=== PATIENT | male | born 1990 | race Caucasian/White ===

== ENCOUNTER 2016-08-31 16:24 | Emergency (ER) | payer OTHER ==
[2016-08-31] MEDS ORDERED: NORCO, ANEXSIA 5/325MG TABLET (HYDROcodone/ACETAMINOPHEN) As Ordered ONE (17:28)
[2016-08-31] MEDS ORDERED: IBUPROFEN 800 MG TAB As Ordered ONE (17:28)
--- NOTE | 2016-08-31 17:34 | REP ---
Right forearm: Two views. History: Injury. Findings: Views right forearm demonstrate a slightly impacted fracture of the proximal radial head with a positive anterior fat pad. This would be better seen on elbow radiographs. Impression: Proximal radial head fracture. No other fracture seen. Signed by Leandro Francis MD 08/31/2016 05:25 P
--- NOTE | 2016-08-31 18:17 | EDDOCDS ---
Nurse's Notes [facility] Name: Humberto Renee Age: 26 yrs Sex: Male : 1990 Arrival Date: 08/31/2016 Time: 16:24 Bed PR Private MD: Other - Complete Info On Cds Diagnosis: Nondisplaced fracture of head of right radius-Impacted, Closed, Acute, Initial Encounter Presentation: 08/31 16:35 Presenting complaint: Patient states: about one hour ago fell off a ladder about 6 [facility] feet, landed on right arm, now pain in elbow, wrist and hand. Adult Sepsis Screening: The patient does not have new or worsening altered mentation. Patient's respiratory rate is less than 22. Systolic blood pressure is greater than 100. Patient has a qSOFA score of 0- Negative Sepsis Screen. Suicide/Homicide risk assessment- the patient denies having any suicidal and/or homicidal ideations and does not present with any other emotional, behavioral or mental health complaints. 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 Transition of care: patient was not received from another setting of care. 16:35 Acuity: SARAH Level 4 [facility] 16:35 Method Of Arrival: Walkin/Carried/Asstd [facility] Triage Assessment: 16:38 General: Appears in no apparent distress, comfortable, Behavior is appropriate for age, [facility] cooperative. Pain: Location: right arm Pain currently is 6 out of 10 on a pain scale. At worst was 10 out of 10 on a pain scale. HIV screening NA for this visit Offered previously. Musculoskeletal: Range of motion limited in right elbow and right wrist. Injury Description: pt fell from height of 5feet. Historical: - Allergies: PENICILLINS; - Home Meds: 1. none - PMHx: none; - PSHx: none; - Social history: Smoking status: Patient states was never smoker of tobacco. No barriers to communication noted. - Family history: Not pertinent. - : The pt / caregiver states he / she is not on anticoagulants. Home medication list is obtained from the patient. - Exposure Risk Screening:: None identified. Screenin:38 Screening information is obtained from the patient. Fall risk: No risks identified. srm Assistance ADL's: requires no assistance with activities of daily living. Abuse/DV Screen: The patient / caregiver reports he/she is: not in a situation that causes fear, pain or injury. Nutritional screening: No deficits noted. Advance Directives: There is no active DNR order. home support is adequate. Assessment: 17:38 General: Appears in no apparent distress, Behavior is appropriate for age, cooperative. srm Musculoskeletal: Circulation, motion, and sensation intact Capillary refill < 3 seconds in right fingers. 18:13 General: Appears comfortable, well nourished, well groomed, Behavior is appropriate for [facility] age, pleasant. Pain: Location: right elbow Pain currently is 2 out of 10 on a pain scale. Neurological: Level of Consciousness is awake, alert, Oriented to person, place, time. Respiratory: Airway is patent Respiratory effort is even, unlabored. Derm: Skin is pink, warm & dry. Musculoskeletal: Circulation, motion, and sensation intact Capillary refill < 3 seconds in right fingers Swelling present in right elbow. Vital Signs: 16:26 BP 145 / 82; Pulse 84; Resp 18 S; Temp 98.5(O); Pulse Ox 96% on R/A; Weight 86.18 kg gr2 (R); Height 6 ft. 0 in. (182.88 cm) (R); Pain 7/10; 18:06 BP 126 / 80; Pulse 87; Resp 18; Temp 99.4; Pulse Ox 96% ; Pain 2/10; srm 16:26 Body Mass Index 25.77 (86.18 kg, 182.88 cm) gr2 Vitals: 16:26 Log In Time: August 31, 2016 at 16:26. gr2 ED Course: 16:25 Patient visited by Becca Bey. gr2 16:25 Other - Complete Info On Cds is Private Physician. gr2 16:25 Patient moved to Waiting gr2 16:28 Patient visited by Becca Bey. gr2 16:28 Patient moved to Pre RCE gr2 16:37 Triage Initiated [facility] 16:38 Affected limb iced. [facility] 17:07 Patient moved to Triage 2 dem1 17:08 Ronald Francois PA-C is PHCP. dk1 17:08 Ava Mackenzie MD is Attending Physician. dk1 17:08 Patient visited by Ronald Francois PA-C. dk1 17:14 Patient moved to Radiology dem1 17:25 Patient moved to Triage 2 es5 17:27 Patient moved to PR1 / 25 srm 17:38 The patient / caregiver is instructed regarding the plan of care and ED course. srm Accompanied by Friend, Patient has correct armband on for positive identification. 17:39 Patient visited by Cathleen Ybarra RN. srm 17:50 Patient name changed from Humberto\S\B\S\Brink\S\ to Humberto\S\Alirio\S\Brink. EDMS 17:53 [facility] Payment Agreement was scanned into [employer] and attached to record. 18:02 [facility] is Referral Physician. dk1 18:13 No apparent distress. kpj 18:13 No IV's were initiated during this patient's visit. No procedures done that require kpj assistance. Sling applied to right arm. Patient with positive distal sensation and brisk distal capillary refill after application. Administered Medications: 17:35 Drug: Ibuprofen 800 mg [ibuprofen 800 mg tablet (1 tabs)] Route: PO; srm 18:07 Follow up: Response: Pain is decreased srm 18:13 Follow up: Response: Pain is decreased kpj 17:35 Drug: HYDROcodone-acetaminophen 1 tabs [hydrocodone 5 mg-acetaminophen 325 mg tablet (1 srm tabs)] Route: PO; 18:07 Follow up: Response: Pain is decreased srm 18:13 Follow up: Response: Pain is decreased kpj Order Results: There are currently no results for this order. Outcome: 18:02 Discharge ordered by Provider. dk1 18:13 Discharge Assessment: Patient awake, alert and oriented x 3. No cognitive and/or kpj functional deficits noted. Patient verbalized understanding of disposition instructions. patient administered narcotics - yes. Pt provided with safe discharge. The following High Risk Discharge criteria are identified: None. Discharged to home ambulatory, with friend. Condition: stable. Discharge instructions given to patient, Instructed on discharge instructions, follow up and referral plans. medication usage, no driving heavy equipment, Rest, Ice, Compression and Elevation. no drinking with medication, Demonstrated understanding of instructions, medications, Pt was receptive of discharge instructions/ teaching. Prescriptions given X 2. No special radiology studies were completed. Property sent home with patient. 18:16 Patient left the ED. kpj Signatures: Dispatcher [facility] Fabienne Mckee RN RN kpj Michelson, Staci, RN RN srm Anita, Lashae, Reg Reg gb Priscila, Ronald, PA-C PA-C dk1 Marcelle Berrios1 Cathy Combs,RN RN konrad Eddi, Linda zheng5 Becca Bey2 HARI
--- NOTE | 2016-08-31 18:17 | EDDOCDS ---
Physician Documentation [facility] Name: Humberto Renee Age: 26 yrs Sex: Male : 1990 Arrival Date: 08/31/2016 Time: 16:24 Bed PR Private MD: Other - Complete Info On Cds Disposition: 08/31/16 18:02 Discharged to Home/Self Care. Impression: Nondisplaced fracture of head of right radius - Impacted, Closed, Acute, Initial Encounter. - Condition is Stable. - Discharge Instructions: Radial Head Fracture. - Prescriptions for Ibuprofen 800 mg Oral Tablet - take 1 tablet by ORAL route every 8 hours As needed take with food; 30 tablet. [place] 5- 325 mg Oral Tablet - take 1 tablet by ORAL route every 6 hours As needed MDD: 4 tabs; 12 tablet. - Medication Reconciliation, Local Pharmacy Hours form. - Follow up: [facility]; When: 1 - 2 days; Reason: Continuance of care. Follow up: Emergency Department; When: As needed; Reason: Worsening of conditions. - Problem is new. - Symptoms are unchanged. Historical: - Allergies: PENICILLINS; - Home Meds: 1. none - PMHx: none; - PSHx: none; - Social history: Smoking status: Patient states was never smoker of tobacco. No barriers to communication noted. - Family history: Not pertinent. - : The pt / caregiver states he / she is not on anticoagulants. Home medication list is obtained from the patient. - Exposure Risk Screening:: None identified. Vital Signs: 08/31 16:26 BP 145 / 82; Pulse 84; Resp 18 S; Temp 98.5(O); Pulse Ox 96% on R/A; Weight 86.18 kg / gr2 189.99 lbs (R); Height 6 ft. 0 in. (182.88 cm) (R); Pain 7/10; 18:06 BP 126 / 80; Pulse 87; Resp 18; Temp 99.4; Pulse Ox 96% ; Pain 2/10; srm 16:26 Body Mass Index 25.77 (86.18 kg, 182.88 cm) gr2 MDM: 16:44 Wrist, Complete Ordered. EDMS 16:45 Forearm (radius/ulna) Ordered. EDMS 16:45 Humerus Ordered. EDMS 17:11 Elbow, Complete Ordered. EDMS 17:25 Sling ordered. dk1 17:25 Ibuprofen 800 mg PO once ordered. dk1 17:25 HYDROcodone-acetaminophen 5 mg-325 mg 1 tabs PO once ordered. dk1 17:25 Ice Pack ordered. dk1 17:45 Financial registration complete. gb 17:53 [facility] Payment Agreement was scanned into [employer] and attached to record. gb Administered Medications: 17:35 Drug: Ibuprofen 800 mg [ibuprofen 800 mg tablet (1 tabs)] Route: PO; srm 18:07 Follow up: Response: Pain is decreased srm 18:13 Follow up: Response: Pain is decreased kpj 17:35 Drug: HYDROcodone-acetaminophen 1 tabs [hydrocodone 5 mg-acetaminophen 325 mg tablet (1 srm tabs)] Route: PO; 18:07 Follow up: Response: Pain is decreased srm 18:13 Follow up: Response: Pain is decreased kpj Signatures: Dispatcher [employer] Fabienne Contreras RN RN Cathleen Delgado RN RN srm Lashae Howard, Reg Reg Ronald Francois, PA-C PA-C dk1 Cathy CombsRN RN [facility] The chart was reviewed and I authenticate all verbal orders and agree with the evaluation and treatment provided.Attachments: 17:53 [facility] Payment Agreement gb MTDD
--- NOTE | 2016-09-01 07:25 | REP ---
RIGHT HAND SERIES: Four views. HISTORY: Trauma. FINDINGS: Four views right hand demonstrate normal bones, joints, and soft tissues. No fracture or subluxation is seen. IMPRESSION: Negative right hand views. Signed by Leandro Francis MD 09/01/2016 08:22 A
--- NOTE | 2016-09-01 07:26 | REP ---
RIGHT HUMERUS: Two views. HISTORY: Trauma. FINDINGS: Two views right humerus demonstrate normal bones, joints, and soft tissues. No fracture or subluxation is seen. IMPRESSION: Negative right humerus views. Signed by Leandro Francis MD 09/01/2016 08:23 A
--- NOTE | 2016-09-01 07:26 | REP ---
RIGHT ELBOW SERIES: Four views. HISTORY: Trauma. FINDINGS: There is a slightly impacted otherwise nondisplaced intra-articular fracture of the proximal radial head with a positive anterior posterior fat pad signs indicative of a hemarthrosis. IMPRESSION: Impacted fracture of the proximal radial head with hemarthrosis. Signed by Leandro Francis MD 09/01/2016 08:23 A
--- NOTE | 2016-09-02 19:16 | EDDOCDS ---
Physician Documentation [facility] Name: Humberto Renee Age: 26 yrs Sex: Male : 1990 Arrival Date: 08/31/2016 Time: 16:24 Bed PR Private MD: Other - Complete Info On Cds Disposition: 08/31/16 18:02 Discharged to Home/Self Care. Impression: Nondisplaced fracture of head of right radius - Impacted, Closed, Acute, Initial Encounter. - Condition is Stable. - Discharge Instructions: Radial Head Fracture. - Prescriptions for Ibuprofen 800 mg Oral Tablet - take 1 tablet by ORAL route every 8 hours As needed take with food; 30 tablet. [place] 5- 325 mg Oral Tablet - take 1 tablet by ORAL route every 6 hours As needed MDD: 4 tabs; 12 tablet. - Medication Reconciliation, Local Pharmacy Hours form. - Follow up: [facility]; When: 1 - 2 days; Reason: Continuance of care. Follow up: Emergency Department; When: As needed; Reason: Worsening of conditions. - Problem is new. - Symptoms are unchanged. Historical: - Allergies: PENICILLINS; - Home Meds: 1. none - PMHx: none; - PSHx: none; - Social history: Smoking status: Patient states was never smoker of tobacco. No barriers to communication noted. - Family history: Not pertinent. - : The pt / caregiver states he / she is not on anticoagulants. Home medication list is obtained from the patient. - Exposure Risk Screening:: None identified. Vital Signs: 08/31 16:26 BP 145 / 82; Pulse 84; Resp 18 S; Temp 98.5(O); Pulse Ox 96% on R/A; Weight 86.18 kg / gr2 189.99 lbs (R); Height 6 ft. 0 in. (182.88 cm) (R); Pain 7/10; 18:06 BP 126 / 80; Pulse 87; Resp 18; Temp 99.4; Pulse Ox 96% ; Pain 2/10; srm 16:26 Body Mass Index 25.77 (86.18 kg, 182.88 cm) gr2 MDM: 16:44 Wrist, Complete Ordered. EDMS 16:45 Forearm (radius/ulna) Ordered. EDMS 16:45 Humerus Ordered. EDMS 17:11 Elbow, Complete Ordered. EDMS 17:25 Sling ordered. dk1 17:25 Ibuprofen 800 mg PO once ordered. dk1 17:25 HYDROcodone-acetaminophen 5 mg-325 mg 1 tabs PO once ordered. dk1 17:25 Ice Pack ordered. dk1 17:45 Financial registration complete. gb 17:53 [facility] Payment Agreement was scanned into [employer] and attached to record. gb 21:59 T-Sheet-- Draft Copy was scanned into [employer] and attached to record. klr Administered Medications: 17:35 Drug: Ibuprofen 800 mg [ibuprofen 800 mg tablet (1 tabs)] Route: PO; srm 18:07 Follow up: Response: Pain is decreased srm 18:13 Follow up: Response: Pain is decreased kpj 17:35 Drug: HYDROcodone-acetaminophen 1 tabs [hydrocodone 5 mg-acetaminophen 325 mg tablet (1 srm tabs)] Route: PO; 18:07 Follow up: Response: Pain is decreased srm 18:13 Follow up: Response: Pain is decreased kpj Signatures: Dispatcher [employer] Fabienne Contreras RN RN kpCathleen Delgado RN RN srm Anita, Lashae, Reg Reg gb Ronald Francois, PA-C PA-C dk1 Cathy Combs,RN RN konrad Serena Jansen The chart was reviewed and I authenticate all verbal orders and agree with the evaluation and treatment provided.Attachments: 17:53 [facility] Payment Agreement gb 21:59 T-Sheet-- Draft Copy klr Chart Complete MTDD
--- NOTE | 2016-09-02 19:16 | EDDOCDS ---
Nurse's Notes [facility] Name: Humberto Renee Age: 26 yrs Sex: Male : 1990 Arrival Date: 08/31/2016 Time: 16:24 Bed PR Private MD: Other - Complete Info On Cds Diagnosis: Nondisplaced fracture of head of right radius-Impacted, Closed, Acute, Initial Encounter Presentation: 08/31 16:35 Presenting complaint: Patient states: about one hour ago fell off a ladder about 6 [facility] feet, landed on right arm, now pain in elbow, wrist and hand. Adult Sepsis Screening: The patient does not have new or worsening altered mentation. Patient's respiratory rate is less than 22. Systolic blood pressure is greater than 100. Patient has a qSOFA score of 0- Negative Sepsis Screen. Suicide/Homicide risk assessment- the patient denies having any suicidal and/or homicidal ideations and does not present with any other emotional, behavioral or mental health complaints. Status: The patient is an active duty nutritional services director. reserves. Transition of care: patient was not received from another setting of care. 16:35 Acuity: SARAH Level 4 [facility] 16:35 Method Of Arrival: Walkin/Carried/Asstd [facility] Triage Assessment: 16:38 General: Appears in no apparent distress, comfortable, Behavior is appropriate for age, [facility] cooperative. Pain: Location: right arm Pain currently is 6 out of 10 on a pain scale. At worst was 10 out of 10 on a pain scale. HIV screening NA for this visit Offered previously. Musculoskeletal: Range of motion limited in right elbow and right wrist. Injury Description: pt fell from height of 5feet. Historical: - Allergies: PENICILLINS; - Home Meds: 1. none - PMHx: none; - PSHx: none; - Social history: Smoking status: Patient states was never smoker of tobacco. No barriers to communication noted. - Family history: Not pertinent. - : The pt / caregiver states he / she is not on anticoagulants. Home medication list is obtained from the patient. - Exposure Risk Screening:: None identified. Screenin:38 Screening information is obtained from the patient. Fall risk: No risks identified. srm Assistance ADL's: requires no assistance with activities of daily living. Abuse/DV Screen: The patient / caregiver reports he/she is: not in a situation that causes fear, pain or injury. Nutritional screening: No deficits noted. Advance Directives: There is no active DNR order. home support is adequate. Assessment: 17:38 General: Appears in no apparent distress, Behavior is appropriate for age, cooperative. srm Musculoskeletal: Circulation, motion, and sensation intact Capillary refill < 3 seconds in right fingers. 18:13 General: Appears comfortable, well nourished, well groomed, Behavior is appropriate for [facility] age, pleasant. Pain: Location: right elbow Pain currently is 2 out of 10 on a pain scale. Neurological: Level of Consciousness is awake, alert, Oriented to person, place, time. Respiratory: Airway is patent Respiratory effort is even, unlabored. Derm: Skin is pink, warm & dry. Musculoskeletal: Circulation, motion, and sensation intact Capillary refill < 3 seconds in right fingers Swelling present in right elbow. Vital Signs: 16:26 BP 145 / 82; Pulse 84; Resp 18 S; Temp 98.5(O); Pulse Ox 96% on R/A; Weight 86.18 kg gr2 (R); Height 6 ft. 0 in. (182.88 cm) (R); Pain 7/10; 18:06 BP 126 / 80; Pulse 87; Resp 18; Temp 99.4; Pulse Ox 96% ; Pain 2/10; srm 16:26 Body Mass Index 25.77 (86.18 kg, 182.88 cm) gr2 Vitals: 16:26 Log In Time: August 31, 2016 at 16:26. gr2 ED Course: 16:25 Patient visited by Becca Bey. gr2 16:25 Other - Complete Info On Cds is Private Physician. gr2 16:25 Patient moved to Waiting gr2 16:28 Patient visited by Becca Bey. gr2 16:28 Patient moved to Pre RCE gr2 16:37 Triage Initiated [facility] 16:38 Affected limb iced. [facility] 17:07 Patient moved to Triage 2 dem1 17:08 Ronald Francois PA-C is PHCP. dk1 17:08 Ava Mackenzie MD is Attending Physician. dk1 17:08 Patient visited by Ronald Francois PA-C. dk1 17:14 Patient moved to Radiology dem1 17:25 Patient moved to Triage 2 es5 17:27 Patient moved to PR1 / 25 srm 17:38 The patient / caregiver is instructed regarding the plan of care and ED course. srm Accompanied by Friend, Patient has correct armband on for positive identification. 17:39 Patient visited by Cathleen Ybarra RN. srm 17:50 Patient name changed from Humberto\S\B\S\Brink\S\ to Humberto\S\Alirio\S\Brink. EDMS 17:53 [facility] Payment Agreement was scanned into [employer] and attached to record. gb 18:02 [facility] is Referral Physician. dk1 18:13 No apparent distress. kpj 18:13 No IV's were initiated during this patient's visit. No procedures done that require kpj assistance. Sling applied to right arm. Patient with positive distal sensation and brisk distal capillary refill after application. 18:19 Forearm (radius/ulna) Returned. EDMS 21:59 T-Sheet-- Draft Copy was scanned into [employer] and attached to record. klr 09/01 07:50 Wrist, Complete Returned. EDMS 07:50 Humerus Returned. EDMS 07:50 Elbow, Complete Returned. EDMS Administered Medications: 08/31 17:35 Drug: Ibuprofen 800 mg [ibuprofen 800 mg tablet (1 tabs)] Route: PO; srm 18:07 Follow up: Response: Pain is decreased srm 18:13 Follow up: Response: Pain is decreased kpj 17:35 Drug: HYDROcodone-acetaminophen 1 tabs [hydrocodone 5 mg-acetaminophen 325 mg tablet (1 srm tabs)] Route: PO; 18:07 Follow up: Response: Pain is decreased srm 18:13 Follow up: Response: Pain is decreased kpj Order Results: Radiology Order: Wrist, Complete Test: Wrist, Complete REASON FOR EXAMINATION: Trauma; RIGHT HAND SERIES: Four views.; ; HISTORY: Trauma.; ; FINDINGS: Four views right hand demonstrate normal bones, joints, and soft; tissues. No fracture or subluxation is seen.; ; IMPRESSION:; ; Negative right hand views.; ; ; Signed by; Leandro Francis MD 09/01/2016 08:22 A; Radiology Order: Forearm (radius/ulna) Test: Forearm (radius/ulna) REASON FOR EXAMINATION: Trauma; Right forearm: Two views.; ; History: Injury.; ; Findings: Views right forearm demonstrate a slightly impacted fracture of the; proximal radial head with a positive anterior fat pad. This would be better seen; on elbow radiographs.; ; Impression:; ; Proximal radial head fracture. No other fracture seen.; ; ; Signed by; Leandro Francis MD 08/31/2016 05:25 P; Radiology Order: Humerus Test: Humerus REASON FOR EXAMINATION: Trauma; RIGHT HUMERUS: Two views.; ; HISTORY: Trauma.; ; FINDINGS: Two views right humerus demonstrate normal bones, joints, and soft; tissues. No fracture or subluxation is seen.; ; IMPRESSION:; ; Negative right humerus views.; ; ; Signed by; Leandro Francis MD 09/01/2016 08:23 A; Radiology Order: Elbow, Complete Test: Elbow, Complete REASON FOR EXAMINATION: Trauma; RIGHT ELBOW SERIES: Four views.; ; HISTORY: Trauma.; ; FINDINGS: There is a slightly impacted otherwise nondisplaced intra-articular; fracture of the proximal radial head with a positive anterior posterior fat pad; signs indicative of a hemarthrosis.; ; IMPRESSION:; ; Impacted fracture of the proximal radial head with hemarthrosis.; ; ; Signed by; Leandro Francis MD 09/01/2016 08:23 A; Outcome: 18:02 Discharge ordered by Provider. dk1 18:13 Discharge Assessment: Patient awake, alert and oriented x 3. No cognitive and/or [facility] functional deficits noted. Patient verbalized understanding of disposition instructions. patient administered narcotics - yes. Pt provided with safe discharge. The following High Risk Discharge criteria are identified: None. Discharged to home ambulatory, with friend. Condition: stable. Discharge instructions given to patient, Instructed on discharge instructions, follow up and referral plans. medication usage, no driving heavy equipment, Rest, Ice, Compression and Elevation. no drinking with medication, Demonstrated understanding of instructions, medications, Pt was receptive of discharge instructions/ teaching. Prescriptions given X 2. No special radiology studies were completed. Property sent home with patient. 18:16 Patient left the ED. [facility] Signatures: Dispatcher [employer] Fabienne Contrersa RN RN [facility] Cathleen Ybarra RN RN [facility] Anita, Lashae, Reg Reg Ronald Howard PA-C PARenetta isegel1 Marcelle Berrios1 Cathy Combs RN RN [facility] Linda Montague es5 Becca Bey gr2 Serena Jansen Chart Complete MTDD
--- NOTE | 2016-09-02 19:16 | EDDOCDS ---
Physician Documentation [facility] Name: Humberto Renee Age: 26 yrs Sex: Male : 1990 Arrival Date: 08/31/2016 Time: 16:24 Bed PR Private MD: Other - Complete Info On Cds Disposition: 08/31/16 18:02 Discharged to Home/Self Care. Impression: Nondisplaced fracture of head of right radius - Impacted, Closed, Acute, Initial Encounter. - Condition is Stable. - Discharge Instructions: Radial Head Fracture. - Prescriptions for Ibuprofen 800 mg Oral Tablet - take 1 tablet by ORAL route every 8 hours As needed take with food; 30 tablet. [place] 5- 325 mg Oral Tablet - take 1 tablet by ORAL route every 6 hours As needed MDD: 4 tabs; 12 tablet. - Medication Reconciliation, Local Pharmacy Hours form. - Follow up: [facility]; When: 1 - 2 days; Reason: Continuance of care. Follow up: Emergency Department; When: As needed; Reason: Worsening of conditions. - Problem is new. - Symptoms are unchanged. Historical: - Allergies: PENICILLINS; - Home Meds: 1. none - PMHx: none; - PSHx: none; - Social history: Smoking status: Patient states was never smoker of tobacco. No barriers to communication noted. - Family history: Not pertinent. - : The pt / caregiver states he / she is not on anticoagulants. Home medication list is obtained from the patient. - Exposure Risk Screening:: None identified. Vital Signs: 08/31 16:26 BP 145 / 82; Pulse 84; Resp 18 S; Temp 98.5(O); Pulse Ox 96% on R/A; Weight 86.18 kg / gr2 189.99 lbs (R); Height 6 ft. 0 in. (182.88 cm) (R); Pain 7/10; 18:06 BP 126 / 80; Pulse 87; Resp 18; Temp 99.4; Pulse Ox 96% ; Pain 2/10; srm 16:26 Body Mass Index 25.77 (86.18 kg, 182.88 cm) gr2 MDM: 16:44 Wrist, Complete Ordered. EDMS 16:45 Forearm (radius/ulna) Ordered. EDMS 16:45 Humerus Ordered. EDMS 17:11 Elbow, Complete Ordered. EDMS 17:25 Sling ordered. dk1 17:25 Ibuprofen 800 mg PO once ordered. dk1 17:25 HYDROcodone-acetaminophen 5 mg-325 mg 1 tabs PO once ordered. dk1 17:25 Ice Pack ordered. dk1 17:45 Financial registration complete. gb 17:53 [facility] Payment Agreement was scanned into [employer] and attached to record. gb 21:59 T-Sheet-- Draft Copy was scanned into [employer] and attached to record. klr Administered Medications: 17:35 Drug: Ibuprofen 800 mg [ibuprofen 800 mg tablet (1 tabs)] Route: PO; srm 18:07 Follow up: Response: Pain is decreased srm 18:13 Follow up: Response: Pain is decreased kpj 17:35 Drug: HYDROcodone-acetaminophen 1 tabs [hydrocodone 5 mg-acetaminophen 325 mg tablet (1 srm tabs)] Route: PO; 18:07 Follow up: Response: Pain is decreased srm 18:13 Follow up: Response: Pain is decreased kpj Signatures: Dispatcher [employer] Fabienne Contreras RN RN kpCathleen Delgado RN RN srm Anita, Lashae, Reg Reg gb Ronald Francois, PA-C PA-C dk1 Cathy Combs,RN RN konrad Serena Jansen The chart was reviewed and I authenticate all verbal orders and agree with the evaluation and treatment provided.Attachments: 17:53 [facility] Payment Agreement gb 21:59 T-Sheet-- Draft Copy klr Chart Complete MTDD
== END 2016-08-31 18:16 | disposition home or self-care (01) ==
LOC: M ED 16:24
DX: S52.124A Nondisplaced fracture of head of right radius, initial encounter for closed fracture (principal); W19.XXXA Unspecified fall, initial encounter; Y92.89 Other specified places as the place of occurrence of the external cause; Y93.89 Activity, other specified; Y99.8 Other external cause status; Z88.0 Allergy status to penicillin